=== PATIENT | female | born 1960 ===

== ENCOUNTER 2019-07-10 05:15 | Day surgery (SDC) | payer OTHER ==
[~2019-07-10 05:15] MED LIST: COZAAR50 MG PO; LIRICA PO; MOBIC PO; SIMVASTATIN5 MG PO
== END 2019-07-10 16:00 | disposition home or self-care (01) ==
LOC: CIR.AMB 05:15 → ADM 07:30 → CIR.AMB 07:30 → EDBD 07:30 → CIR.AMB 14:00
DX: S83.242A Other tear of medial meniscus, current injury, left knee, initial encounter (principal); M65.862 Other synovitis and tenosynovitis, left lower leg

== ENCOUNTER 2023-11-27 09:02 | Outpatient (CLI) | payer OTHER | END 2023-11-27 09:07 | disposition home or self-care (01) | LOC: EDBD 09:02 → RX STUDY 09:02 | DX: K22.0 Achalasia of cardia (principal) ==